=== PATIENT | male | born 1990 | race Caucasian/White ===

== ENCOUNTER 2023-09-15 10:30 | Emergency (ER) | payer MEDICAID, OTHER ==
[~2023-09-15] VITALS: Ht 177.8 cm; Wt 84.0 kg
[2023-09-15 10:35] VITALS: TEMP 97.6; O2SAT 98
[2023-09-15] MEDS ORDERED: ONDANSETRON HCL 4MG/2ML INJ IV STA (11:12)
[2023-09-15 12:02] LABS: BASOPHILS % 1.9 % (0.0-2.0); EOSINOPHILS % 0.2 % (0.0-5.0); HEMATOCRIT. 44.4 % (42.0-52.0); HEMOGLOBIN. 15.3 g/dL (14.0-18.0); INR 1.2; LYMPHOCYTES % 25.2 % (20.0-50.0); MEAN CORPUSCULAR HEMOGLOBIN 27.9 pg (28.0-32.0); MEAN CORPUSCULAR HGB CONC 34.5 g/dL (31.0-37.0); MEAN CORPUSCULAR VOLUME 80.9 fL (80.0-94.0); MEAN PLATELET VOLUME 7.6 fl (7.4-10.4); MONOCYTES % 6.5 % (2.0-8.0); NEUTROPHILS % 66.2 % (40.0-76.0); PLATELET 228 x1000/uL (130-400); PROTHROMBIN TIME 12.9 sec (9.6-11.0); RED BLOOD CELL COUNT 5.48 mill/uL (4.7-6.1); RED CELL DISTRIBUTION WIDTH 15.6 % (11.6-14.6)
[2023-09-15 12:12] LABS: ALANINE AMINOTRANSFERASE 144 IU/L (10-49); ALBUMIN 4.5 g/dL (3.2-4.8); ASPARTATE AMINOTRANSFERASE 135 IU/L (<34); BILIRUBIN TOTAL 1.2 mg/dL (0.1-1.0); CALCIUM 9.1 mg/dL (8.7-10.4); CARBON DIOXIDE 12 mEq/L (21-32); CHLORIDE 99 mEq/L (98-107); CREATININE 0.9 mg/dL (0.6-1.3); GLUCOSE 156 mg/dL (70-105); POTASSIUM 3.7 mEq/L (3.5-5.1); SODIUM 131 mEq/L (136-145); TROPONIN I HIGH SENSITIVITY 11 ng/L (3.0-53); UREA NITROGEN BLOOD 11 mg/dL (9-23)
[2023-09-15 12:25] LABS: PROTEIN TOTAL 8.5 g/dL (6.0-8.3)
[2023-09-15] MEDS: ONDANSETRON HCL 4MG/2ML INJ IV NR (15:30)
[2023-09-15] MEDS: DEXT 5%/LACTATED RINGERS 1,000 ML IV SCH (15:30)
[2023-09-15 15:48] LABS: CLARITY URINE CLEAR (CLEAR); COLOR URINE DARK YELLOW (YELLOW); GLUCOSE URINE NEGATIVE (NEGATIVE); KETONES URINE NEGATIVE (NEGATIVE); LEUKOCYTE ESTERASE URINE TRACE (NEGATIVE); NITRITE URINE NEGATIVE (NEGATIVE); OCCULT BLOOD URINE NEGATIVE (NEGATIVE); PH URINE 5.5 (4.5-8.0); PROTEIN URINE 2+ (NEGATIVE); SPECIFIC GRAVITY URINE 1.037 (1.005-1.030)
[2023-09-15 16:04] LABS: BACTERIA URINE 2+; MUCUS URINE 1+ /lpf (NONE/TRACE); RBC URINE 0-2 /hpf (0-2); SQUAMOUS EPITHELIAL CELL URINE RARE /lpf (RARE/1+); WBC URINE 0-2 /hpf (0-2)
[2023-09-15] MEDS: SODIUM CHLORIDE 0.9% 1,000 ML IV ONE (16:05)
[2023-09-15] MEDS: MORPHINE SULFATE 4 MG/ML INJ (FOR IV/IM USE) IV NR (18:06)
[2023-09-15 21:50] VITALS: BP 165/126; PULSE 93; RESP 18
[2023-09-15] MEDS: MORPHINE SULFATE 2 MG/ML CPJ (NOT FOR IM USE) IV ONE (21:50)
== END 2023-09-15 18:42 | disposition short-term general hospital (02) ==
LOC: ER 10:30 → CANBEDREQ 16:17 → ER 18:42
DX: R11.2 Nausea with vomiting, unspecified (principal); F10.20 Alcohol dependence, uncomplicated; I10 Essential (primary) hypertension
CPT/HCPCS: 80053; 81003; 83690; 85025; 85610; 84484; 36415; 71045; 74176; 76705; 93005; 96361; 96374; 96375; 96376; 99285; J2405; J2270 ×2; J7030; Z7610 ×3

== ENCOUNTER 2023-10-27 21:06 | Emergency (ER) | payer OTHER ==
[~2023-10-27] VITALS: Ht 177.8 cm; Wt 77.0 kg
[2023-10-27 21:11] VITALS: BP 147/110; PULSE 110; RESP 14; TEMP 98.2; O2SAT 94
[2023-10-27] MEDS ORDERED: KETOROLAC 30MG/ML VIAL IV STA (21:21)
[2023-10-27] MEDS ORDERED: ONDANSETRON HCL 4MG/2ML INJ IV STA (21:21)
[2023-10-27] MEDS ORDERED: MORPHINE SULFATE 4 MG/ML INJ (FOR IV/IM USE) IV STA (21:21)
[2023-10-27] MEDS ORDERED: SODIUM CHLORIDE 0.9% 1,000 ML IV ONE (21:30)
== END 2023-10-28 02:16 | disposition left against medical advice (07) ==
LOC: ER 21:06
DX: F10.10 Alcohol abuse, uncomplicated (principal); Y90.9 Presence of alcohol in blood, level not specified; Z53.21 Procedure and treatment not carried out due to patient leaving prior to being seen by health care provider
CPT/HCPCS: J7030

== ENCOUNTER 2024-11-07 22:45 | Emergency (ER) | payer MEDICAID ==
[~2024-11-07] VITALS: Ht 175.3 cm; Wt 77.0 kg
[~2024-11-07 22:45] MED LIST: CHLO25CA11 MT; FOLI-43 PO; INSU100I28 SQ; LOSA50TA41 PO; METO-396 PO; MULT-230 MT; NIFE-32 MT; PROT40 MT; THIA100T72 MT
[2024-11-07 23:08] VITALS: O2SAT 98
[2024-11-07 23:18] LABS: BASOPHILS % 1.2 % (0.0-2.0); EOSINOPHILS % 1.3 % (0.0-5.0); HEMOGLOBIN. 14.4 g/dL (14.0-18.0); LYMPHOCYTES % 24.3 % (20.0-50.0); MEAN CORPUSCULAR HEMOGLOBIN 28.8 pg (28.0-32.0); MEAN CORPUSCULAR HGB CONC 33.4 g/dL (31.0-37.0); MEAN CORPUSCULAR VOLUME 86.3 fL (80.0-94.0); MEAN PLATELET VOLUME 9.1 fl (7.4-10.4); MONOCYTES % 4.7 % (2.0-8.0); NEUTROPHILS % 68.5 % (40.0-76.0); PLATELET 186 x1000/uL (130-400); RED BLOOD CELL COUNT 4.99 mill/uL (4.7-6.1); RED CELL DISTRIBUTION WIDTH 14.6 % (11.6-14.6); WHITE BLOOD COUNT 6.5 x1000/uL (4.5-11.0)
[2024-11-07 23:26] LABS: CHLORIDE 110 mEq/L (98-107); POTASSIUM 4.3 mEq/L (3.5-5.1)
[2024-11-07 23:28] LABS: CALCIUM 9.2 mg/dL (8.7-10.4); CARBON DIOXIDE 23 mEq/L (21-32)
[2024-11-07 23:33] LABS: CREATININE 1.2 mg/dL (0.6-1.3); GLUCOSE 311 mg/dL (70-105)
[2024-11-07 23:34] LABS: ETHANOL BLOOD 300 mg/dL (<10); UREA NITROGEN BLOOD 6 mg/dL (9-23)
[2024-11-07] MEDS: ONDANSETRON HCL 4MG/2ML INJ IV STA (23:34)
[2024-11-07 23:35] LABS: ALANINE AMINOTRANSFERASE 43 IU/L (10-49); ALBUMIN 4.4 g/dL (3.2-4.8); ASPARTATE AMINOTRANSFERASE 22 IU/L (<34)
[2024-11-07] MEDS: KETOROLAC 30MG/ML VIAL IV STA (23:35)
[2024-11-07 23:36] LABS: BILIRUBIN DIRECT < 0.1 mg/dL (<=3.0); BILIRUBIN TOTAL 0.2 mg/dL (0.1-1.0); PROTEIN TOTAL 7.3 g/dL (6.0-8.3)
[2024-11-07] MEDS: SODIUM CHLORIDE 0.9% 1,000 ML IV ONE (23:36)
[2024-11-07 23:43] LABS: PROTHROMBIN TIME 10.5 sec (9.6-11.0); SODIUM 148 mEq/L (136-145)
[2024-11-08] MEDS: MORPHINE SULFATE 4 MG/ML INJ (FOR IV/IM USE) IV ONE (02:14)
[2024-11-08] MEDS: FAMOTIDINE 20MG TABLET PO ONE (02:14)
[2024-11-08 02:23] VITALS: BP 143/97; PULSE 88; RESP 16; TEMP 36.7; O2SAT 99
== END 2024-11-08 03:10 | disposition home or self-care (01) ==
LOC: ER 22:45
DX: E11.65 Type 2 diabetes mellitus with hyperglycemia (principal); K29.20 Alcoholic gastritis without bleeding; I10 Essential (primary) hypertension; Z79.899 Other long term (current) drug therapy; Z79.4 Long term (current) use of insulin
CPT/HCPCS: 80076; 80048; 80320; 83690; 85025; 85610; 36415; 96361; 96374; 96375; 99284; J1885; J2405; J7030; Z7610; J2270; G0480

== ENCOUNTER 2024-12-11 16:09 | Emergency (ER) | payer MEDICAID ==
[~2024-12-11] VITALS: Ht 172.7 cm; Wt 86.0 kg
[2024-12-11 16:11] VITALS: O2SAT 99
[2024-12-11 17:30] LABS: BASOPHILS % 1.1 % (0.0-2.0); EOSINOPHILS % 1.2 % (0.0-5.0); HEMOGLOBIN. 15.1 g/dL (14.0-18.0); LYMPHOCYTES % 33.7 % (20.0-50.0); MEAN CORPUSCULAR HGB CONC 32.8 g/dL (31.0-37.0); MEAN CORPUSCULAR VOLUME 85.2 fL (80.0-94.0); MEAN PLATELET VOLUME 8.6 fl (7.4-10.4); PLATELET 217 x1000/uL (130-400); RED CELL DISTRIBUTION WIDTH 12.8 % (11.6-14.6); WHITE BLOOD COUNT 7.7 x1000/uL (4.5-11.0)
[2024-12-11] MEDS: SODIUM CHLORIDE 0.9% 1,000 ML IV ONE ×2 (17:34→18:24)
[2024-12-11] MEDS: ONDANSETRON HCL 4MG/2ML INJ IV STA (17:35)
[2024-12-11] MEDS: PANTOPRAZOLE SODIUM 40 MG/VIAL IV STA (17:35)
[2024-12-11] MEDS: MORPHINE SULFATE 4 MG/ML INJ (FOR IV/IM USE) IV STA (17:35)
[2024-12-11 17:40] LABS: CHLORIDE 104 mEq/L (98-107); POTASSIUM 3.6 mEq/L (3.5-5.1); SODIUM 146 mEq/L (136-145)
[2024-12-11 17:41] LABS: INR 1.1; PROTHROMBIN TIME 11.3 sec (9.6-11.0)
[2024-12-11 17:42] LABS: CALCIUM 9.5 mg/dL (8.7-10.4); CARBON DIOXIDE 28 mEq/L (21-32)
[2024-12-11 17:46] VITALS: TEMP 36.7
[2024-12-11 17:47] LABS: CREATININE 0.8 mg/dL (0.6-1.3); GLUCOSE 200 mg/dL (70-105); UREA NITROGEN BLOOD 7 mg/dL (9-23)
[2024-12-11 17:48] LABS: ETHANOL BLOOD 300 mg/dL (<10)
[2024-12-11 17:49] LABS: ALANINE AMINOTRANSFERASE 28 IU/L (10-49); ASPARTATE AMINOTRANSFERASE 21 IU/L (<34)
[2024-12-11 17:50] LABS: BILIRUBIN DIRECT 0.1 mg/dL (<=3.0); BILIRUBIN TOTAL 0.4 mg/dL (0.1-1.0); PROTEIN TOTAL 7.7 g/dL (6.0-8.3)
[2024-12-11] MEDS: MAGNESIUM/ALUMINUM HYDROXIDE/SIMETHICONE 30ML UDC PO ONE (19:06)
[2024-12-11 19:58] VITALS: BP 146/99; PULSE 81; RESP 18; O2SAT 96
== END 2024-12-11 20:02 | disposition home or self-care (01) ==
LOC: ER 16:09
DX: F10.129 Alcohol abuse with intoxication, unspecified (principal); K29.20 Alcoholic gastritis without bleeding; I10 Essential (primary) hypertension; E11.9 Type 2 diabetes mellitus without complications; F17.200 Nicotine dependence, unspecified, uncomplicated; Z79.899 Other long term (current) drug therapy; Y90.8 Blood alcohol level of 240 mg/100 ml or more
CPT/HCPCS: 80076; 80048; 80320; 83690; 85025; 85610; 36415; 96361; 96374; 96375; 99285; J2405; J2470; J2270; J7030; Z7610; G0480

== ENCOUNTER 2025-02-02 17:24 | Emergency (ER) | payer MEDICAID ==
[~2025-02-02] VITALS: Ht 172.7 cm; Wt 91.0 kg
[~2025-02-02 17:24] MED LIST changes: +AMLO5TAB5 MT; -FOLI-43 PO; -INSU100I28 SQ; +LOSA1TAB34 MT; -LOSA50TA41 PO; -METO-396 PO; -MULT-230 MT; -NIFE-32 MT; -PROT40 MT
[2025-02-02 17:26] VITALS: O2SAT 98
[2025-02-02 17:50] VITALS: TEMP 36.7
[2025-02-02] MEDS: FAMOTIDINE 20MG/2ML VIAL IV ONE (18:32)
[2025-02-02] MEDS: ONDANSETRON HCL 4MG/2ML INJ IV ONE (18:32)
[2025-02-02] MEDS: MORPHINE SULFATE 4 MG/ML INJ (FOR IV/IM USE) IV ONE (18:32)
[2025-02-02] MEDS: SODIUM CHLORIDE 0.9% 1,000 ML IV ONE (18:33)
[2025-02-02 18:39] LABS: BASOPHILS % 1.1 % (0.0-2.0); EOSINOPHILS % 1.5 % (0.0-5.0); HEMATOCRIT. 44.1 % (42.0-52.0); HEMOGLOBIN. 15.1 g/dL (14.0-18.0); LYMPHOCYTES % 28.4 % (20.0-50.0); MEAN PLATELET VOLUME 8.7 fl (7.4-10.4); MONOCYTES % 6.1 % (2.0-8.0); NEUTROPHILS % 62.9 % (40.0-76.0); PLATELET 238 x1000/uL (130-400); RED BLOOD CELL COUNT 5.38 mill/uL (4.7-6.1); RED CELL DISTRIBUTION WIDTH 12.6 % (11.6-14.6)
[2025-02-02 18:51] LABS: INR 1.0
[2025-02-02 18:54] LABS: CREATININE 0.8 mg/dL (0.6-1.3)
[2025-02-02 18:55] LABS: ETHANOL BLOOD 300 mg/dL (<10); UREA NITROGEN BLOOD 5 mg/dL (9-23)
[2025-02-02 18:56] LABS: ASPARTATE AMINOTRANSFERASE 32 IU/L (<34); BILIRUBIN DIRECT 0.1 mg/dL (<=3.0); TROPONIN I HIGH SENSITIVITY 8 ng/L (3.0-53)
[2025-02-02 18:57] LABS: BILIRUBIN TOTAL 0.5 mg/dL (0.1-1.0); PROTEIN TOTAL 7.5 g/dL (6.0-8.3)
[2025-02-02] MEDS ORDERED: FAMO-135 PO (21:32)
[2025-02-02 22:44] VITALS: BP 160/107; PULSE 100; RESP 17; O2SAT 95
== END 2025-02-02 23:00 | disposition home or self-care (01) ==
LOC: ER 17:24 → CMPBEDREQ 02-03 13:08
DX: F10.229 Alcohol dependence with intoxication, unspecified (principal); R10.13 Epigastric pain; E11.9 Type 2 diabetes mellitus without complications; I10 Essential (primary) hypertension; Z79.899 Other long term (current) drug therapy; Y90.8 Blood alcohol level of 240 mg/100 ml or more
CPT/HCPCS: 80076; 80048; 80320; 83880; 83690; 85025; 85610; 85730; 84484; 36415; 71045; 74176; 93005; 96361; 96374; 96375; 99285; J1308; J2405; J2270; J7030; Z7610 ×2; A4606; G0480

== ENCOUNTER 2025-03-06 16:30 | Emergency (ER) | payer MEDICAID ==
[~2025-03-06] VITALS: Ht 172.7 cm; Wt 87.0 kg
[~2025-03-06 16:30] MED LIST changes: -AMLO5TAB5 MT; +AMLO5TAB6 MT; +FAMO-135 PO; +GLIP5TAB22 MT; +INSU100I28 SQ
[2025-03-06 16:32] VITALS: O2SAT 96
[2025-03-06 18:16] LABS: BASOPHILS % 2.7 % (0.0-2.0); EOSINOPHILS % 0.7 % (0.0-5.0); HEMATOCRIT. 44.5 % (42.0-52.0); HEMOGLOBIN. 14.6 g/dL (14.0-18.0); LYMPHOCYTES % 27.0 % (20.0-50.0); MEAN PLATELET VOLUME 8.2 fl (7.4-10.4); MONOCYTES % 3.6 % (2.0-8.0); NEUTROPHILS % 66.0 % (40.0-76.0); PLATELET 204 x1000/uL (130-400); RED BLOOD CELL COUNT 5.29 mill/uL (4.7-6.1); RED CELL DISTRIBUTION WIDTH 14.9 % (11.6-14.6)
[2025-03-06 18:29] LABS: CREATININE 0.7 mg/dL (0.6-1.3); UREA NITROGEN BLOOD < 5 mg/dL (9-23)
[2025-03-06] MEDS ORDERED: FAMOTIDINE 20MG TABLET PO SCH (19:30)
[2025-03-06] MEDS ORDERED: ONDANSETRON 4MG ODT PO SCH (19:30)
[2025-03-06 19:50] LABS: ETHANOL BLOOD 247 mg/dL (<10); INR 1.1; TROPONIN I HIGH SENSITIVITY 7 ng/L (3.0-53)
[2025-03-06 19:51] LABS: ASPARTATE AMINOTRANSFERASE 122 IU/L (<34); BILIRUBIN DIRECT 0.2 mg/dL (<=3.0); PHOSPHORUS 3.0 mg/dL (2.5-4.9)
[2025-03-06 19:52] LABS: BILIRUBIN TOTAL 0.7 mg/dL (0.1-1.0); PROTEIN TOTAL 7.5 g/dL (6.0-8.3)
[2025-03-06] MEDS: MORPHINE SULFATE 4 MG/ML INJ (FOR IV/IM USE) IV ONE (20:26)
[2025-03-06] MEDS: ONDANSETRON HCL 4MG/2ML INJ IV ONE (20:26)
[2025-03-06] MEDS: PANTOPRAZOLE SODIUM 40 MG/VIAL IV ONE (20:26)
[2025-03-06] MEDS: SODIUM CHLORIDE 0.9% 500 ML IV ONE (20:40)
[2025-03-06 21:19] LABS: CLARITY URINE Clear (CLEAR); COLOR URINE YELLOW (YELLOW); LEUKOCYTE ESTERASE URINE NEGATIVE (NEGATIVE); NITRITE URINE NEGATIVE (NEGATIVE); OCCULT BLOOD URINE NEGATIVE (NEGATIVE)
[2025-03-06] MEDS: IOHEXOL-300 100 ML BOTTLE ONE (22:54)
[2025-03-06] MEDS ORDERED: ONDA4TAB50 MT (23:33)
[2025-03-06] MEDS ORDERED: PANT40SU PO (23:34)
[2025-03-06 23:40] VITALS: BP 176/113; PULSE 112; RESP 15; TEMP 36.5; O2SAT 97
== END 2025-03-07 00:06 | disposition home or self-care (01) ==
LOC: ER 16:30 → CMPBEDREQ 03-07 13:41
DX: R10.13 Epigastric pain (principal); E11.9 Type 2 diabetes mellitus without complications; I10 Essential (primary) hypertension; F17.200 Nicotine dependence, unspecified, uncomplicated; F10.90 Alcohol use, unspecified, uncomplicated; Z79.4 Long term (current) use of insulin; Z87.19 Personal history of other diseases of the digestive system; Z79.899 Other long term (current) drug therapy; Z79.84 Long term (current) use of oral hypoglycemic drugs; Y90.9 Presence of alcohol in blood, level not specified
CPT/HCPCS: 80076; 80048; 81003; 80320; 82962; 83690; 83735; 84100; 85025; 85610; 84484; 36415; 71045; 74177; 96365; 96375; 99285; Q9967; J2405; J2470; J2270; J7040; Z7610; G0480